=== PATIENT | female | born 1990 | race Caucasian/White ===

== ENCOUNTER 2020-01-05 19:57 | Emergency (ER) | payer BC, SELFPAY ==
[2020-01-05 19:59] VITALS: BP 107/82; PULSE 93; RESP 16; TEMP 36.7; O2SAT 100
[2020-01-05 21:06] VITALS: BP 107/56; PULSE 81; RESP 20; TEMP 36.5; O2SAT 100
[2020-01-05 21:43] VITALS: BP 110/64; PULSE 85; RESP 11; TEMP 36.6; O2SAT 96
[2020-01-05 22:45] VITALS: BP 105/57; PULSE 86; RESP 14; O2SAT 98
--- NOTE | 2020-01-05 22:45 | ED.ALLEREA ---
HPI - Allergic Reaction General Chief complaint: Allergic Reaction Stated complaint: allergic reaction Time Seen by Provider: 01/05/20 22:30 Source: patient Mode of arrival: ambulatory Limitations: no limitations History of Present Illness HPI narrative: This patient is a 29 yo female who presents for evaluation of an allergic reaction. Patient states that she has been seeing an cyber forensic specialist since September due to severe exposure allergies. She reports at 4 pm she received 3 injections at her [employer] office. When she got home afterwards she developed rash at site of injection , painful swallowing and sensation of throat closing. She took benadryl 25 mg at 7 pm. She denies history of reaction to these injections in the past. She does not know the names of the injections. MD complaint: allergic reaction and hives Exposure: medication Symptoms: difficulty swallowing and hoarseness Treatment prior to arrival: benadryl (25 mg) Related Data Allergies Allergy/AdvReac Type Severity Reaction Status Date / Time No Known Allergies Allergy Unverified 11/19/16 08:02 Review of Systems Review of Systems: All systems reviewed & are unremarkable except as noted in HPI and below Constitutional: Constitutional: Denies chills and Denies fever(s) ENT: Reports dysphagia and Reports sore throat Cardiovascular: Cardiovascular: Denies chest pain Respiratory: Respiratory: Reports dyspnea Integumentary/Breasts: Skin/Breast: Reports rash PMFSH Past Medical History Medical History (Updated 01/06/20 @ 00:57 by Marta Paez MD) Environmental allergies Exam Narrative: Exam Narrative: GENERAL: Well-appearing, well-nourished, and in no acute distress. HEAD: Normocephalic, atraumatic EYES: PERRLA and EOMI, conjunctiva clear without discharge EARS: TM's clear bilaterally without erythema or dullness NOSE: Nares clear, no rhinorrhea or epistaxis THROAT:Mucous membranes moist, Oropharynx normal without erythema, exudate, peritonsillar swelling or fluctuance NECK: Supple, without lymphadenopathy or mass RESPIRATORY: No respiratory distress, Airway patent, Respirations non-labored, Clear to auscultation without rales, rhonchi or wheeze HEART: Regular rate and rhythm. No murmur heard. Normal peripheral pulses. ABDOMEN: Soft, nontender, nondistended, normal active bowel sounds. No masses. No rebound or guarding, No organomegaly. EXTREMITIES: No edema, normal strength with full range of motion. SKIN: Warm, dry, normal color without rash NEURO: Alert and oriented x3. CN 2-12 grossly intact. No focal deficits. PSYCH: Normal mood and affect. Course Reevaluation(s) Reevaluation #1: Patient states she feels better. She is now able to swallow without pain. She has no shortness of breath. she will follow up with physician president tomorrow. Date: 01/06/20 Time: 00:55 Vital Signs Vital signs: Vital Signs Temperature 98.0 F 01/05/20 19:59 Pulse Rate 93 01/05/20 19:59 Respiratory Rate 16 01/05/20 19:59 Blood Pressure 107/82 01/05/20 19:59 Pulse Oximetry 100 01/05/20 19:59 Temperature 98.5 F 01/06/20 01:13 Pulse Rate 87 01/06/20 01:13 Respiratory Rate 14 01/06/20 01:13 Blood Pressure 97/60 L 01/06/20 01:13 Pulse Oximetry 97 01/06/20 01:13 Discharge Plan Discharge Clinical Impression: Allergic reaction Qualifiers: Encounter type: initial encounter Qualified Code(s): T78.40XA - Allergy, unspecified, initial encounter Patient Disposition: Home, Self-Care Condition: Stable Instructions: Antibiotic Form, General Allergic Reaction (ED) Additional Instructions: Today you were evaluated for an allergic reaction. Take claritin and pepcid daily which are antihistamines. IF your symptoms return, come back to ER. Call your physician president tomorrow to discuss what happened. Prescriptions: New famotidine [Pepcid] 20 mg tablet 20 mg PO DAILY Qty: 14 RF: 0 prednisone 50 mg tablet
[2020-01-05] MEDS: FAMOTIDINE 20 MG/2 ML VIAL IV PUSH (22:55)
[2020-01-05] MEDS: methylPREDNISolone SOD SUCC 125 MG VIAL IV PUSH (22:57)
[2020-01-05] MEDS: EPINEPHrine HCL INJ 1 MG/ML AMPUL 0.3 MG IM (23:02)
[2020-01-06 00:09] VITALS: BP 99/51; PULSE 91; RESP 18; O2SAT 98
[2020-01-06 01:13] VITALS: BP 97/60; PULSE 87; RESP 14; TEMP 36.9; O2SAT 97
== END 2020-01-06 01:15 | disposition home or self-care (01) ==
PROVIDERS: Emergency Provider General Practice
DX: T78.40XA Allergy, unspecified, initial encounter (principal)
CPT/HCPCS: 96372; 96374; 96375; 99284; J0171; J1200; J2930

== ENCOUNTER 2021-11-26 08:38 | Emergency (ER) | payer OTHER, SELFPAY ==
[2021-11-26 08:46] VITALS: BP 103/56; PULSE 108; RESP 16; TEMP 36.5; O2SAT 94
--- NOTE | 2021-11-26 09:04 | ED.NAVMDI ---
HPI - Nausea/Vomiting/Diarrhea General Chief complaint: Nausea/Vomiting/Diarrhea <AUTUMN Sandoval Last Filed: 11/26/21 13:11> Stated complaint: increased N/V, 12 wks preg <Yun Shukla PA-C - Last Filed: 11/26/21 13:11> Time Seen by Provider: 11/26/21 08:49 <Yun Shukla PA-C - Last Filed: 11/26/21 13:11> History of Present Illness HPI Narrative: Patient is a 30 year old female who is currently 12 weeks who presents for 12 hours of nausea, vomiting and diarrhea. Patient states her symptoms came on after eating [place] food last evening. Her dad who ate the same food is also having similar symptoms. Reports appx 1 episode of vomiting and watery stools per hour. Has attempted small sips of fluid but is unable to tolerate any PO. Denies abdominal pain, blood in vomit or blood in stool, vaginal bleeding, sudden gush of fluids. Follows with Ob and has no reported problems with her so far. <Yun Shukla PA-C - Last Filed: 11/26/21 13:11> Related Data Allergies/Adverse reactions: Allergies Allergy/AdvReac Type Severity Reaction Status Date / Time shellfish derived Allergy Hives Verified 11/26/21 09:38 <uYn Shukla PA-C - Last Filed: 11/26/21 13:11> Review of Systems Review of Systems: Gen.: Denies fevers or chills Eyes: Denies eye pain or visual change ENT: Denies congestion Respiratory: Denies shortness of breath or cough CV: Denies chest pain or palpitations GI: Reports nausea vomiting and diarrhea. Denies abdominal pain denies burning, urgency, frequency or hematuria Musculoskeletal: Denies back pain or muscle pain Neuro: Denies numbness, tingling, weakness or focal weakness Skin: Denies rash Except as documented, all other systems reviewed and negative <AUTUMN Sandoval Last Filed: 11/26/21 13:11> All systems reviewed & are unremarkable except as noted in HPI and below <LOUIS Sandoval-C - Last Filed: 11/26/21 13:11> [facility] Past Medical History Medical History: Medical History Environmental allergies <Yun Shukla PA-C - Last Filed: 11/26/21 13:11> Exam Const: General: no acute distress and alert <Yun Shukla PA-C - Last Filed: 11/26/21 13:11> Orientation/consciousness: patient oriented x3 <Yun Shukla PA-C - Last Filed: 11/26/21 13:11> HENMT: Head: normal to inspection <AUTUMN Sandoval Last Filed: 11/26/21 13:11> Mouth: Yes moist mucous membranes <Yun Shukla PA-C - Last Filed: 11/26/21 13:11> Eyes: Conjunctivae: conjunctivae normal <Yun Shukla PA-C - Last Filed: 11/26/21 13:11> Neck: Neck: normal visual inspection <AUTUMN Sandoval Last Filed: 11/26/21 13:11> Chest: Chest palpation & inspection: normal inspection of the chest <Yun Shukla PA-C - Last Filed: 11/26/21 13:11> Resp: Effort & Inspection: normal respiratory effort <Yun Shukla PA-C - Last Filed: 11/26/21 13:11> Auscultation: clear to auscultation bilaterally, no rales, no rhonchi and no wheezes <Yun Shukla PA-C - Last Filed: 11/26/21 13:11> Cardio: Rate: regular rate <AUTUMN Sandoval Last Filed: 11/26/21 13:11> Rhythm: regular rhythm <Yun Shukla PA-C - Last Filed: 11/26/21 13:11> Heart sounds: no murmurs <AUTUMN Sandoval Last Filed: 11/26/21 13:11> GI: GI Palp: Yes Soft to palpation, No Tenderness to palpation present (GI), No Guarding due to palpation present (GI) and No Rebound tenderness present <Yun Shukla PA-C - Last Filed: 11/26/21 13:11> Other: Gravid uterus palpated, heart tones detected on doppler <AUTUMN Sandoval Last Filed: 11/26/21 13:11> : General: Yes no CVA tenderness <AUTUMN Sandoval Last Filed: 11/26/21 13:11> S
[2021-11-26 09:15] LABS: Basophils Percent Auto 0.2 % (0.2-1.2); Eosinophils Percent Auto 0.1 % (0-4.4); Hematocrit 36.6 % (37.0-47.0); Hemoglobin 12.3 g/dL (12.0-15.0); Immature Granulocyte Absolute 0.04 K/mm3 (0.00-0.031); Immature Granulocyte Percent A 0.4 % (0-0.5); Lymphocytes Percent Auto 3.4 % (18.3-44.2); Mean Corpuscular HGB Conc 33.6 g/dl (32-36); Mean Corpuscular Hemoglobin 31.5 pg (26-34); Mean Corpuscular Volume 93.8 fl (80-100); Monocytes Absolute Auto 0.2 K/mm3 (0.1-0.6); Monocytes Percent Auto 2.1 % (2.6-8.5); Neutrophils Absolute Auto 8.3 K/mm3 (1.3-6.7); Neutrophils Percent Auto 93.8 % (45.5-73.1); Platelet Count Result 188 k/mm3 (150-375); Red Cell Distribution Width 12.3 % (11.5-14.5); White Blood Count 8.9 K/mm3 (4.5-10.0)
[2021-11-26] MEDS: SODIUM CHLORIDE 0.9% IV 1,000 ML 999 ML IV CONT (09:22)
[2021-11-26] MEDS: ONDANSETRON INJ 4 MG/2 ML VIAL IV PUSH (09:23)
[2021-11-26 09:24] LABS: Alanine Aminotransferase 21 U/L (4-35); Albumin Level 3.9 g/dL (3.5-5.1); Alkaline Phosphatase 79 U/L (38-126); Anion Gap 6 mmol/L (8-16); Aspartate Amino Transferase 23 U/L (14-36); Bilirubin,Total 0.6 mg/dL (0.2-1.3); Blood Urea Nitrogen 14 mg/dL (7-17); Calcium 8.4 mg/dL (8.4-10.2); Carbon Dioxide 20 mmol/L (22-30); Chloride 107 mmol/L (98-107); Estimated CRCL calculation 167 ml/min; Estimated Glomerular Filt Rate > 60; Glucose 110 mg/dL (65-110); Lipase 34 U/L (23-300); Potassium 3.8 mmol/L (3.4-5.0); Sodium 133 mmol/L (137-145)
[2021-11-26 09:36] LABS: Add Urine Microscopic? YES; Appearance Urine Cloudy (Clear); Bacteria Urine Trace /hpf; Bilirubin Urine Negative (Negative); Blood Urine Negative (Negative); Color Urine Yellow (Yellow); Glucose Urine UA Negative (Negative); Ketones Urine 2+ mg/dL (Negative); Leukocyte Esterase Ur Negative LEU/UL (Negative); Mucus Urine Few /lpf; Nitrate Urine Negative (Negative); Protein Urine 1+ mg/dL (Negative); Squamous Epithelial Cell Urine Occasional /hpf (Few); Urobilinogen Urine Negative mg/dL (<2.0); WBC Urine 0-3 /hpf
[2021-11-26 11:38] VITALS: BP 97/60; PULSE 92; RESP 18; O2SAT 98
== END 2021-11-26 11:39 | disposition home or self-care (01) ==
PROVIDERS: Physician Assistant; Emergency Provider Emergency Medicine; PCP Obstetrics & Gynecology
DX: O21.9 Vomiting of pregnancy, unspecified (principal); Z3A.12 12 weeks gestation of pregnancy
CPT/HCPCS: 36415; 80053; 81001; 83690; 85025; 96361; 96374; 99284; J2405; J7030

== ENCOUNTER → 2022-03-15 11:50 | Outpatient (CLI) | payer OTHER, SELFPAY ==
--- NOTE | ~2022-03-15 | US_ITS ---
US right upper quadrant DATE: 03/15/2022 12:14 INDICATION: Right-sided abdominal pain TECHNIQUE: Real-time imaging of liver, pancreas, gallbladder areas COMPARISON: 12/2014 CT abdomen pelvis FINDINGS: No hepatic space-occupying mass lesion is evident. Normal hepatopedal portal venous flow di rection. No gallstones or gallbladder wall thickening. Negative sonographic Lui's sign. The common bile emilio t measures 4.4 mm, normal. The pancreas is not well-demonstrated due to overlying bowel gas. IMPRESSION: Negative liver, gallbladder, common bile duct Pancreas is largely obscured by bowel gas Reviewed, dictated and finalized at [facility]. Reviewed, dictated and finalized at [facility].
== END ==
PROVIDERS: PCP Family Medicine; Visit Provider Obstetrics & Gynecology
DX: R10.11 Right upper quadrant pain (principal)
CPT/HCPCS: 76705

== ENCOUNTER 2022-04-10 13:55 | Outpatient (RCR) | payer OTHER, SELFPAY ==
[2022-04-11] MEDS: RHO(D) IMMUNE GLOBULIN 300 MCG/2 ML SYRINGE IM (16:07)
== END 2022-07-09 23:59 | disposition home or self-care (01) ==
LOC: ANHLAB 13:55
PROVIDERS: PCP Family Medicine; Visit Provider Obstetrics & Gynecology
DX: Z29.13 Encounter for prophylactic Rho(D) immune globulin (principal); O36.0190 Maternal care for anti-D [Rh] antibodies, unspecified trimester, not applicable or unspecified; Z3A.00 Weeks of gestation of pregnancy not specified
CPT/HCPCS: 36415; 85461; 90384; 96372; J2790

== ENCOUNTER 2022-06-07 16:36 | Inpatient (IN) | payer OTHER, SELFPAY ==
[2022-06-07] VITALS (63 sets, daily range): BP systolic 78–131; BP diastolic 45–83; PULSE 67–105; TEMP 36.6; O2SAT 95–100; BMI 36.3
[2022-06-07 18:07] LABS: Basophils Percent Auto 0.3 % (0.2-1.2); Eosinophils Absolute Auto 0.1 K/mm3 (0-0.3); Eosinophils Percent Auto 0.6 % (0-4.4); Hematocrit 31.1 % (37.0-47.0); Hemoglobin 10.2 g/dL (12.0-15.0); Immature Granulocyte Absolute 0.09 K/mm3 (0.00-0.031); Immature Granulocyte Percent A 0.9 % (0-0.5); Lymphocytes Absolute Auto 1.71 K/mm3 (0.9-3.2); Lymphocytes Percent Auto 16.6 % (18.3-44.2); Mean Corpuscular HGB Conc 32.8 g/dl (32-36); Mean Corpuscular Hemoglobin 29.2 pg (26-34); Mean Corpuscular Volume 89.1 fl (80-100); Mean Platelet Volume 11.2 fl (7.4-10.4); Monocytes Absolute Auto 0.7 K/mm3 (0.1-0.6); Monocytes Percent Auto 6.4 % (2.6-8.5); Neutrophils Absolute Auto 7.7 K/mm3 (1.3-6.7); Neutrophils Percent Auto 75.2 % (45.5-73.1); Platelet Count Result 213 k/mm3 (150-375); Red Blood Count 3.49 M/mm3 (4.2-5.4); Red Cell Distribution Width 14.2 % (11.5-14.5); White Blood Count 10.3 K/mm3 (4.5-10.0)
--- NOTE | 2022-06-07 18:40 | LDADM ---
This patient, Laura Koch, was admitted to Labor/Delivery/Recovery 108 on 06/07/22 at 16:36. Plans for labor, pain management and were discussed with patient. Patient/family oriented to hospital policies and general routines including ID bracelet, bed and alarms, visiting hours, pain management, procedures, bathroom and other care routines, personal items, smoking policy, room service/diet and guest tray routines, security routines, and visiting hours. Patient/Family are encouraged to report perceived risks to care and to ask questions if they do not understand what they are told or what they should do. See OBIX for further documentation.
[2022-06-07] MEDS: OXYTOCIN 30 UNITS/NS 500 ML 30 UNITS/500 ML BAG IV CONT (19:24)
[2022-06-07] MEDS: LACTATED RINGERS 1,000 ML 125 ML IV CONT ×2 (19:24→20:55)
--- NOTE | 2022-06-07 19:38 | WPDANESEPP ---
Anes - Eval Pre Procedure Procedure: Labor epidural Date/Time: 06/07/22 19:38 Surgeon: Gaudencio Preop Diagnosis: Abd pain with contractions Pre Op Diagnosis: IOL Patient Data Age: 31 Gender: F Height: 1.6 m Weight: 93 kg Last Vital Signs Temp 97.9 F 06/07/22 18:00 Pulse 87 06/07/22 19:30 BP 116/83 06/07/22 19:30 O2 Del Method Room Air 06/07/22 18:38 Allergies Allergy/AdvReac Type Severity Reaction Status Date / Time grass pollen Allergy Swelling Verified 05/19/22 14:44 of Lip/Tongue/Throat latex Allergy Swelling Verified 05/19/22 14:53 mold Allergy Swelling Verified 05/19/22 14:44 of Lip/Tongue/Throat shellfish derived Allergy Hives Verified 11/26/21 09:38 fruits Allergy Swelling Uncoded 05/19/22 14:44 of Lip/Tongue/Throat Home Medications Medication Instructions Recorded Confirmed Type famotidine 20 mg tablet (Pepcid) 20 mg PO DAILY #14 tabs 01/06/20 06/07/22 Rx Laboratory Tests 06/07/22 06/07/22 06/07/22 17:57 17:57 17:57 WBC 10.3 K/mm3 H K/mm3 (4.5-10.0) RBC 3.49 M/mm3 L M/mm3 (4.2-5.4) Hgb 10.2 g/dL L g/dL (12.0-15.0) Hct 31.1 % L % (37.0-47.0) MCV 89.1 fl fl (80-100) MCH 29.2 pg pg (26-34) MCHC 32.8 g/dl g/dl (32-36) RDW 14.2 % % (11.5-14.5) Plt Count 213 k/mm3 k/mm3 (150-375) MPV 11.2 fl H fl (7.4-10.4) Immature Gran % (Auto) 0.9 % H % (0-0.5) Neut % (Auto) 75.2 % H % (45.5-73.1) Lymph % (Auto) 16.6 % L % (18.3-44.2) [place] % (Auto) 6.4 % % (2.6-8.5) Eos % (Auto) 0.6 % % (0-4.4) Baso % (Auto) 0.3 % % (0.2-1.2) Lymph # (Auto) 1.71 K/mm3 K/mm3 (0.9-3.2) [place] # (Auto) 0.7 K/mm3 H K/mm3 (0.1-0.6) Eos # (Auto) 0.1 K/mm3 K/mm3 (0-0.3) Baso # (Auto) 0.0 K/mm3 K/mm3 (0.0-0.1) Abs Immat Gran (auto) 0.09 K/mm3 H K/mm3 (0.00-0.031) Absolute Neuts (auto) 7.7 K/mm3 H K/mm3 (1.3-6.7) Absolute Nucleated RBC 0.0 K/mm3 K/mm3 (0.0-0.012) Nucleated RBC % 0.0 % % (0.0-0.2) RPR Pending Blood Type A Negative Antibody Screen Positive Antibody Identification Pending Antigen Identification Pending BAMBI, IgG Interpret Pending BAMBI, Poly Interpret Negative BAMBI, Complement Interp Pending Patient hx anesthesia problems: none Family hx anesthesia problems: none Results Review: All pre-operative results and documents have been reviewed as part of the pre-operative evaluation. [facility] Past Medical History Medical History Anxiety Environmental allergies Herpes Obesity Family History Family History Father Diabetes mellitus Grandparent Cancer Grandparent Congestive heart failure Grandparent Cancer Multiple sclerosis Social History Social History Smoking status: Never smoker Substance use: never Spiritual care concerns: No Exam Day of Procedure 06/07/22 19:38 Patient weight: obese Airway: Mallampati scale class II
[2022-06-08] VITALS (244 sets, daily range): BP systolic 46–130; BP diastolic 15–104; PULSE 68–198; RESP 16; TEMP 36.2–38.5; O2SAT 74–100
[2022-06-08] MEDS: LACTATED RINGERS 1,000 ML 125 ML IV CONT ×3 (03:15→09:16)
[2022-06-08] MEDS: AMPICILLIN 2 GM/NS 100 ML 2 GM/100 ML BAG IVPB (06:27)
[2022-06-08 09:02] LABS: Rapid Plasma Reagin Non-Reactive (NonReactive)
--- NOTE | 2022-06-08 09:05 | WPDOBADMIT ---
Obstetrics - Admit Note Admission Note: record reviewed. Additions to the history and/or subsequent changes in the physical findings follow. 31 y/o G1 at 39 3/7 weeks gestation who presented last evening for scheduled induction of labor. Mentioned she had been leaking fluid since 10am that day, and RomPlus was positive. She is receiving oxytocin for labor augmentation and now ampicillin for ROM>18 hours. Comfortable with epidural. GBS neg. AVSS NST reactive TOCO: contractions every 2-5 min ABD soft, nontender, gravid, verrtex EXT nontender Cervix 5-6/80/0 Continue labor. Anticipate .
[2022-06-08] MEDS: AMPICILLIN 1 GM/NS 50 ML 1 GM/50 ML BAG IVPB ×2 (10:38→14:21)
--- NOTE | 2022-06-08 12:11 | PM.OBPNLAB ---
Pain Control Date/time seen: 06/08/22 12:11 Comments: Feeling pressure with contractions. AVSS NST reactive TOCO: contractions every 3-5 min Cervix 8-9/90/0. IUPC placed. Continue labor.
[2022-06-08] MEDS: LIDOCAINE HCL 1% PF 30 ML VIAL (16:07)
--- NOTE | 2022-06-08 16:26 | PM.OBPRVD ---
OB - Delivery Note Procedure Delivery date: 06/08/22 Procedure: Induction method: None Delivery augmentation: Pitocin Delivery monitor: External FHT, External Uterine and Internal Uterine Route of delivery: Laceration Description: Perineal - 2nd Degree Delivery repair: vicryl (3-0) Specimen: Yes (cord blood, placenta) Quantitative Blood Loss (ml): 120 Anesthesia type: Local (1% lidocaine) Disposition: PACU Complications: None Narrative: 31 y/o G1 at 39 3/7 weeks gestation who presented to the hospital for scheduled induction of labor. However, she mentioned she had had leakage of fluid since 10am that morning. SROM was diagnosed, so she was admitted and labor was augmented with oxytocin IV. After 18 hours SROM, ampicillin was started. She received an epidural for pain control. She developed a fever of 101F and FHR 160 bpm, and was given Tylenol IV 1 gram. Her labor progressed and her cervix dilated completely. She pushed with good effort and delivered the infant's head to the perineum, followed by the body. The nose and mouth were bulb suctioned. After a delay, the cord was clamped and cut. The infant was handed off the field. Cord blood was collected. The placenta delivered spontaneously and was grossly normal in appearance. The usual 3 vessel cord was noted. A second degree midline perineal laceration was sustained. This was infiltrated with 10 mL 1% lidocaine and reapproximated using 3 0 Vicryl in the usual layered fashion. Excellent hemostasis resulted as did excellent reapproximation of the normal anatomy. Needle and instrument counts were correct. The patient was taken to recovery room in stable condition. The went to the nursery in stable condition. I was present and scrubbed for the entire delivery. Baby Date of : 06/08/22 Time of : 15:58 Weeks of gestation at delivery: 39 gender: Female Weight (pounds): 8 Weight (ounces): 7 presentation: vertex position: Left Occiput Anterior Placenta delivery description: Spontaneous and Normal Configuration Cord Vessel Description: 3 Vessels and Delayed Cord Clamping score one minute: 8 score five minutes: 9
--- NOTE | 2022-06-08 16:29 | PM.OBDSVD ---
DS: Admitting Diagnosis Discharge Date 06/10/22 Admitting Diagnosis IUP at 39 3/7 weeks SROM DS: Discharge Diagnosis Discharge Diagnosis (1) (normal spontaneous vaginal delivery): Code(s): O80 - Encounter for full-term uncomplicated delivery Status: Acute (2) Chorioamnionitis: Code(s): O41.1290 - Chorioamnionitis, unspecified trimester, not applicable or unspecified Status: Acute (3) Prolonged rupture of membranes, delivered: Status: Acute OB - DS: Summary OB Procedures : None OB Procedures Intrapartum: Spontaneous Vag Delivery OB Procedures: : None Time Spent with Patient Time attestation: Total time spent providing and/or coordinating discharge services: DS: Data Data Completed and Pending Labs on day of discharge: Labs from last 24 hours 06/07/22 06/07/22 06/07/22 17:57 17:57 17:57 WBC 10.3 H RBC 3.49 L Hgb 10.2 L Hct 31.1 L MCV 89.1 MCH 29.2 MCHC 32.8 RDW 14.2 Plt Count 213 MPV 11.2 H Immature Gran % (Auto) 0.9 H Neut % (Auto) 75.2 H Lymph % (Auto) 16.6 L [place] % (Auto) 6.4 Eos % (Auto) 0.6 Baso % (Auto) 0.3 Lymph # (Auto) 1.71 [place] # (Auto) 0.7 H Eos # (Auto) 0.1 Baso # (Auto) 0.0 Abs Immat Gran (auto) 0.09 H Absolute Neuts (auto) 7.7 H Absolute Nucleated RBC 0.0 Nucleated RBC % 0.0 RPR Non-reactive Blood Type A Negative Antibody Screen Positive Antibody Identification Passive Due to RH Imm Glob Antigen Identification Cancelled BAMBI, IgG Interpret Not Performed BAMBI, Poly Interpret Negative BAMBI, Complement Interp Not Performed Discharge Plan Discharge Attending physician on discharge: Topher Ratliff Discharging Clinician: Topher Ratliff Patient Disposition: Home, Self-Care Activity: pelvic rest Diet: regular Discharge Instructions: Education: Mom and Baby Guide Given to: Mother Follow-Up: Call your delivering provider's office for an appointment to be seen in: 6 Weeks Mom and baby should come to the [facility] for the follow-up appointment. Appointment Date/Time: Sunday, June 12, 2022 at 8:00 am What to expect at your follow-up visit: Physical Assessment Call [phone] if you are unable to keep your appointment time. BREAST CARE: * Wear a snug supportive bra. * For engorgement discomfort: Breast Feeding: * Apply warm moist washcloths * Express milk as needed to relieve engorgement * Wear loose clothing Bottle Feeding: * May apply ice packs * For sore nipples: * Identify correct latch-on * Apply warm moist washcloths before and after nursing * Air dry nipples after nursing * May apply Lansinoh cream to nipples EPISIOTOMY/PERINEAL CARE: * Until bleeding stops, use your tito bottle after urinating * Change your pad frequently throughout the day * You may take sitz baths several times a day (fill your bathtub with warm water and soak for 20 minutes.) Do NOT bathe in the water * No tub baths until seen by your physician - You may shower ACTIVITY: * Rest as much as possible. * Do not exercise or lift anything heavier than your baby (such as laundry or other children.) * Avoid stairs or driving as much as possible. * Do not put anything into the vagina. No douching, tampons, or sexual activity until seen by physician. NOTIFY PHYSICIAN IF YOU HAVE ANY QUESTIONS OR IF ANY OF THE FOLLOWING SYMPTOMS OCCUR: * If your episiotomy or incision becomes red, swollen, or more painful than what you have experienced in the hospital. * If your vaginal bleeding becomes foul smelling. * If your vaginal bleeding becomes more heavy than a period or if your bleeding changes from pink to bright red. However, you may pass an occasional walnut-sized clot once or twice for the first week . *
[2022-06-08] MEDS: IBUPROFEN 600 MG TABLET PO (16:58)
[2022-06-08] MEDS: WITCH HAZEL 40 PADS 1 PAD TOPICAL (19:19)
[2022-06-08] MEDS: BENZOCAINE 20% AER SPR (*SP) 56 GM CAN 1 SPRAY TOPICAL (19:19)
[2022-06-09] MEDS: IBUPROFEN 600 MG TABLET PO ×3 (01:20→15:41)
[2022-06-09 05:12] LABS: Hematocrit 25.2 % (37.0-47.0); Hemoglobin 8.3 g/dL (12.0-15.0)
--- NOTE | 2022-06-09 06:40 | PM.OBPNVD ---
OB - PN: Subj Subjective Date/time seen: 06/09/22 06:40 Patient comments: no complaints and pain well controlled baby status: doing well OB - PN: Obj Data Labs CBC & Chem 7: 06/09/22 04:31 Labs: Laboratory Results - last 24 hr 06/07/22 06/09/22 17:57 04:31 Hgb 8.3 L Hct 25.2 L RPR Non-reactive OB - PN A/P Plan day: 1 Plan: routine care Time Spent With Patient Time: Total time spent is greater than 50% in coordination of care (as documented) at patient's floor/unit and/or counseling patient: Time with patient: less than 15 minutes Exam Const: General: cooperative, healthy appearing and comfortable Resp: Effort & Inspection: normal respiratory effort GI: Inspection: normal to inspection
[2022-06-09] MEDS: DOCUSATE SODIUM 100 MG CAPSULE PO (08:53)
[2022-06-09] MEDS: POLYSACCHARIDE IRON COMPLEX 150 MG CAPSULE PO ×2 (08:54→15:41)
[2022-06-09] MEDS: MULTIVIT/MIN/PREN/FOL AC/IRON TABLET 1 TAB PO (08:54)
--- NOTE | 2022-06-09 09:17 | WPDANLDPN2 ---
Anes-Prog Note L&D Date/Time: 06/09/22 09:17 Comfortable throughout: labor and delivery Neuraxial method: epidural Epidural/Spinal procedure site: clean & non-tender Neuro status: Neuro function grossly intact. Cardiovascular status: normal Respiratory status: normal Airway patency: baseline Mental status: baseline Post-Op hydration status: normal Vital Signs: Last Vital Signs Temp 36.2 C L 06/08/22 20:14 Pulse 89 06/08/22 20:14 Resp 16 06/08/22 20:14 BP 109/70 06/08/22 20:14 Pulse Ox 95 06/08/22 14:26 O2 Del Method Room Air 06/07/22 18:38 Pain score (VAS): 09/05 I/O: Intake & Output 06/08/22 06/09/22 06/09/22 23:59 07:59 15:59 Output Total 225 Balance -225 Post-procedural complaints: none Patient feedback: Patient satisfied with anesthetic care.
[2022-06-09 09:30] VITALS: BP 116/74; PULSE 87; RESP 18; TEMP 36.5; O2SAT 98
--- NOTE | 2022-06-09 14:29 | PC.NURSE ---
[phone] Introductions were made, then consulted with patient to assess needs related to . Mother led the conversation with her?plans to feed?her infant and the?experience so far using a nipple shield. Resources provided for inpatient and outpatient services using a resource guide and mom/baby guide. Mother voiced understanding of information and will call if there is a request for assistance. Discussed stimulating milk production with pumping along with the risks, benefits, use and care of using the nipple shield with . Reported to primary RN. [phone] Mother works well with her with encouragement and education. Encouraged understanding of the benefits of skin to skin (unwrapping and placing vertically on her chest), responsive feeding and how to watch for early feeding signs, frequency of feeding on demand about every 8-12 times in 24 hours (every 2-3 hours), milk production, duration of feeding, signs of adequate intake/output and how to record on the feeding sheet. Reviewed positioning and ear, shoulder, hip alignment, supporting the breast with the sandwich hold, asymmetrical latch (off-center), and leading with the chin with a big open side gape. Infant latched optimally to the right breast in football position. Education given to mother of how to visualize suck/swallow ratios and drinking at the breast. was able to maintain latch without discomfort to mother. Nipple care reviewed with optimal latch, good positioning and support so infant will not develop a poor latch and cause pain. Reminding mother of comfort measures of healing with a warm and wet washcloth to rinse breast, then leave open to air-dry as needed. Reviewed good handwashing when or touching the breast/nipples to prevent infection. Resources used to facilitate learning were used with the visual handouts, tool, mom and baby guide. Mother voiced understanding of responsive feedings, stimulating with skin to skin, hand expressed colostrum, massage touch, talking to infant to encourage if it has been 2 -3 hours since the start of the last , to call if infant does not latch or there is discomfort with . Reported to the primary RN. [phone] Reviewed nipple shield use. Practiced latching infant to the left breast with and without the nipple shield with no optimal latch. Infant was syringe fed 4mls of human milk as sucked on gloved finger. Mother was encouraged to pump to stimulate milk supply and possibly milk for the next feeding if needed. Mother encouraged to call for assistance to continue practicing to work on the latching to improve from a shallow latch, nipple shield latch to an optimal latch without a nipple shield. Mother voiced understanding to call for assistance with , if infant doesn't wake to latch, or is painful. Reported to primary RN.
[2022-06-09 15:50] VITALS: BP 115/85; PULSE 85; RESP 18; TEMP 37.2; O2SAT 99
[2022-06-09 18:17] VITALS: BP 121/83; PULSE 81; RESP 14; TEMP 36.2; O2SAT 100
[2022-06-09 20:15] VITALS: PULSE 81; RESP 14; O2SAT 100
[2022-06-09] MEDS: ACETAMINOPHEN 325 MG TABLET 650 MG PO (20:35)
[2022-06-10] MEDS: IBUPROFEN 600 MG TABLET PO ×2 (01:55→10:12)
--- NOTE | 2022-06-10 07:51 | P.PNOB_ITS ---
OB - PN: Subj Subjective Date/time seen: 06/10/22 07:51 Patient comments: no complaints, pain well controlled and tolerating diet [place] baby status: doing well OB - PN: Obj Data Labs CBC & Chem 7: 06/09/22 04:31 OB - PN A/P Plan day: 2 Plan: routine care, discharge home and follow up 6 weeks Time Spent With Patient Time: Total time spent is greater than 50% in coordination of care (as documented) at patient's floor/unit and/or counseling patient: Time with patient: less than 15 minutes Exam Const: General: cooperative, healthy appearing and comfortable Orientation/consciousness: oriented to person, oriented to place and oriented to time HENMT: Head: normal to inspection Resp: Effort & Inspection: normal respiratory effort GI: Inspection: normal to inspection and incision ( clean dry and intact)
[2022-06-10 08:00] VITALS: BP 127/74; PULSE 89; RESP 16; TEMP 36.8; O2SAT 99
[2022-06-10] MEDS: MULTIVIT/MIN/PREN/FOL AC/IRON TABLET 1 TAB PO (10:12)
[2022-06-10] MEDS: POLYSACCHARIDE IRON COMPLEX 150 MG CAPSULE PO (10:12)
[2022-06-10] MEDS: DOCUSATE SODIUM 100 MG CAPSULE PO (10:12)
[2022-06-12 08:20] VITALS: BP 124/80; PULSE 93; RESP 18; TEMP 36.8; O2SAT 99
== END 2022-06-10 14:06 | disposition home or self-care (01) | DRG 805 ==
LOC: ANHLDR 06-08 09:08 → ANHOB2 06-10 13:20 → ANHLDR 06-13 08:13 → ANHOB2 06-13 08:13
PROVIDERS: Admitting Provider Obstetrics & Gynecology; PCP Family Medicine; Visit Provider Obstetrics & Gynecology
DX: O75.2 Pyrexia during labor, not elsewhere classified (principal); O41.1230 Chorioamnionitis, third trimester, not applicable or unspecified; Z37.0 Single live birth; O70.1 Second degree perineal laceration during delivery; O76 Abnormality in fetal heart rate and rhythm complicating labor and delivery; Z3A.39 39 weeks gestation of pregnancy
CPT/HCPCS: 36415; 84112; 85014; 85018; 85025; 86592; 86850; 86880; 86900; 86901; 88307; A9270; J0131; J0290; J2590; J2795; J7120

== ENCOUNTER 2022-06-17 10:18 | Emergency (ER) | payer OTHER, SELFPAY ==
[2022-06-17 10:58] VITALS: BP 104/80; PULSE 122; RESP 16; TEMP 37.8; O2SAT 99
[2022-06-17 11:17] VITALS: BP 104/80; PULSE 122; RESP 16; TEMP 37.8; O2SAT 99
--- NOTE | 2022-06-17 11:22 | ED.GENADULT ---
HPI - General Adult General Chief complaint: Skin/Abscess/Foreign Body Stated complaint: left breast pain Time Seen by Provider: 06/17/22 11:22 Source: patient Mode of arrival: ambulatory Limitations: no limitations History of Present Illness HPI narrative: 31-year-old female patient presents to the [facility] with complaints of bilateral breast pain. Patient states that she has been breast-feeding at home she has a baby that is about a week and a half old. Patient states she has been pumping the last 2 days because of the pain with breast-feeding. Patient states she has been running a fever and has had significant redness and pain to both breast. Patient states that the left is worse than the right. Denies any nausea, vomiting or diarrhea Related Data Allergies Allergy/AdvReac Type Severity Reaction Status Date / Time grass pollen Allergy Swelling Verified 06/17/22 10:43 of Lip/Tongue/Throat latex Allergy Swelling Verified 06/17/22 10:43 mold Allergy Swelling Verified 06/17/22 10:43 of Lip/Tongue/Throat shellfish derived Allergy Hives Verified 06/17/22 10:43 fruits Allergy Swelling Uncoded 06/17/22 10:43 of Lip/Tongue/Throat Review of Systems Review of Systems: CONSTITUTIONAL: Denies fever, chills, or sweats. EYES: Denies visual changes, redness, or discharge. ENT: Denies rhinorrhea, congestion, sore throat, or otalgia. CARDIOVASCULAR: Denies chest pain, palpitations, or edema. RESPIRATORY: Denies cough or dyspnea. GASTROINTESTINAL: Denies abdominal pain, nausea, vomiting, or diarrhea. GENITOURINARY: Denies dysuria or hematuria. SKIN: Denies rash or itching. Positive bilateral breast pain x2 days MUSCULOSKELETAL: Denies back pain, joint pain, or myalgia. NEUROLOGIC: Denies headache, numbness, or weakness. PSYCHIATRIC: Denies anxiety or depression. [facility] Past Medical History Medical History Anxiety Environmental allergies Herpes Obesity Family History Family History Father Diabetes mellitus Grandparent Cancer Grandparent Congestive heart failure Grandparent Cancer Multiple sclerosis Social History Social History Smoking status: Never smoker Substance use: never Spiritual care concerns: No Comments At the time of my signature I agree with nursing past medical history, surgical, social, and family history. There is no relevant family history pertinent to the presenting complaint. Exam Narrative: GENERAL: Well-appearing, well-nourished, and in no acute distress. HEAD: Normocephalic, atraumatic. EYES: PERRLA and EOMI. ENT: Nares clear, no rhinorrhea or epistaxis. Mucous membranes moist. NECK: Supple. No lymphadenopathy CHEST: Clear to auscultation. No respiratory distress. HEART: Regular rate and rhythm. No murmur heard. Normal peripheral pulses. ABDOMEN: Soft, nontender, nondistended, normal active bowel sounds. EXTREMITIES: Normal range of motion. No edema. SKIN: Warm, dry, no rash. Patient has redness and tenderness noted to bilateral breast more so on the left than the right. There is warmth presents on palpation. There is some discharge noted to the right breast that appears to be milky. No yellow or green discharge noted. No obvious abscess is noted. NEURO: No focal deficits. Alert and oriented x3. Course Course Level of Care: Express Care Visit Vital Signs Vital signs: Vital Signs Temperature 37.8 C H 06/17/22 10:58 Pulse Rate 122 H 06/17/22 10:58 Respiratory Rate 16 06/17/22 10:58 Blood Pressure 104/80 06/17/22 10:58 Pulse Oximetry 99 06/17/22 10:58 Oxygen Delivery Room Air 06/17/22 10:58 Temperature 37.8 C H 06/17/22 11:17 Pulse Rate 122 H 06/17/22 11:17 Respiratory Rate 16 06/17/22 11:17 Blood Pressure 104/80 06/17/22 11:17 Pulse Oxi
== END 2022-06-17 11:48 | disposition home or self-care (01) ==
PROVIDERS: Emergency Provider Nurse Practitioner Family; PCP Family Medicine
DX: N61.23 Granulomatous mastitis, bilateral breast (principal)
CPT/HCPCS: 99213; G0463